=== PATIENT | male | born 1985 | race African-American/Black ===

== ENCOUNTER 2018-11-16 10:17 | Inpatient (IN) | payer SELFPAY ==
[2018-11-16] MEDS ORDERED: Aspirin Chewable 81 MG TAB ONE (11:27)
--- NOTE | 2018-11-16 11:45 | RAD ---
RADIOGRAPH CHEST 1 VIEW: DATE: 11/16/2018 HISTORY: 33-year-old male with chest pain and dyspnea. FINDINGS: The visualized lung sexton are clear. The cardiomediastinal silhouette and hilar shadows are normal. The lateral costophrenic angles are sharp. The osseous structures appear normal. There is no pneumothorax. IMPRESSION: Negative.
[2018-11-16 11:48] LABS: #Basophils 0.1 thou/uL (0.0-0.2); #Eosinphils 0.2 thou/uL (0.0-0.7); #Lymphocytes 1.7 thou/uL (1.20-3.40); #Monocytes 0.5 thou/uL (0.11-0.59); #Neutrophils 4.8 thou/uL (1.40-6.50); %Basophils 1.5 % (0.0-1.0); %Eosinophils 2.2 % (0.0-10.0); %Lymphocytes 23.6 % (21.0-51.0); %Monocytes 7.1 % (0.0-10.0); %Neutrophils 65.7 % (42.0-75.0); Hemoglobin 7.6 g/dL (14.0-18.0); Mean Corpuscular HGB CONC 28.8 g/dL (32.0-36.0); Mean Corpuscular Hemoglobin 19.8 pg (27.0-31.0); Mean Corpuscular Volume 68.9 fL (78.0-98.0); Platelet Count 305 thou/uL (130-400); RBC Distribution Width 16.9 % (11.5-14.5); Red Blood Cell (RBC) Count 3.81 mill/uL (4.70-6.10); White Blood Cell (WBC) Count 7.3 thou/uL (4.8-10.8)
[2018-11-16 12:05] LABS: ALT (SGPT) 26 U/L (8-55); AST (SGOT) 22 U/L (5-34); Albumin 3.9 g/dL (3.5-5.0); Alkaline Phosphatase 62 U/L (40-150); Anion Gap 8 mmol/L (10-20); BUN (Urea Nitrogen) 11 mg/dL (8.9-20.6); Bilirubin, Total 0.5 mg/dL (0.2-1.2); Calc. Creatinine Clearance 0 mL/min (70-130); Carbon Dioxide 27 mmol/L (22-29); Chloride 104 mmol/L (98-107); Estimated GFR-MDRD Greater than 90; Globulin 3.4 g/dL (2.4-3.5); Glucose 107 mg/dL (70-105); Potassium 4.2 mmol/L (3.5-5.1); Protein, Total 7.3 g/dL (6.0-8.3); Sodium 135 mmol/L (136-145)
[2018-11-16 12:20] LABS: Hypochromia MODERATE=16-30 cells (100X) (0-5/hpf); MDiff Complete? YES; Microcytosis MODERATE=15-30 cells (100X) (0-5/hpf); Ovalocytes SLIGHT = 2-5 cells (100X) (0-1/hpf); Polychromasia SLIGHT = 2-3 cells (100X) (0-2/hpf); Reflex for Review?? YES
[2018-11-16 14:05] LABS: Troponin I Less than 0.010 ng/mL (< 0.028)
[2018-11-16 15:05] LABS: Iron 18 ug/dL (65-175); Iron Binding Capacity, Total 509 mcg/dL (261-462)
[2018-11-16 15:46] LABS: Reticulocyte Count 2.3 % (0.5-1.5)
--- NOTE | 2018-11-16 16:12 | CON ---
DATE OF CONSULTATION: 11/16/2018 CHIEF COMPLAINT: Weakness, dizziness. HISTORY OF PRESENT ILLNESS: Mr. Patel is a 33-year-old man, who came to the emergency room this afternoon with his heart racing, weakness, and feeling like he needed to pass out. He was found to have severe anemia with a hemoglobin of 7.6 and MCV of 68. He reports that he has had red blood mixed with brown solid stool on and off over the last month. He has been having to strain at bowel movements, but stools have not been particularly hard themselves. He has had no nausea, vomiting, or abdominal pain with this. No chest pain or shortness of breath. He did have an episode, where he lost 80 pounds back in 2017 and felt weak then, but then those symptoms resolved and gained that weight back. His reports that he snores heavily and he stops breathing while he is sleeping. PAST MEDICAL HISTORY: Otherwise negative. PAST SURGICAL HISTORY: Negative. FAMILY HISTORY: He had an aunt with cervical cancer. SOCIAL HISTORY: Habits, he drinks 4-5 beers every other day. No drugs. He smokes cigarettes around once per month. ALLERGIES: PENICILLIN. MEDICATIONS: Prior to admission, none. He does not use aspirin or NSAIDs. REVIEW OF SYSTEMS: Negative x10 systems reviewed, except as stated in the history of present illness. PHYSICAL EXAMINATION: GENERAL: He is in no acute distress. Alert and oriented x3. He is obese. VITAL SIGNS: His weight is 355 pounds per his report. His pulse is regular. HEENT: His eyes have no scleral icterus. Oropharynx is clear without lesions. NECK: No cervical or supraclavicular lymphadenopathy. Oropharynx is clear without lesions. LUNGS: Clear to auscultation bilaterally. HEART: Regular rate and rhythm without murmur. ABDOMEN: Soft, nontender, and nondistended. Bowel sounds are present. EXTREMITIES: No lower extremity edema. NEUROLOGIC: Cranial nerves are grossly intact. IMPRESSION: 1. Severe symptomatic microcytic anemia. 2. Hematochezia on and off over the last month. 3. Morbid obesity with a weight of 355 pounds. 4. Symptoms suggestive of sleep apnea. RECOMMENDATIONS: EGD and colonoscopy tomorrow. Job ID: [id number]
[2018-11-16] MEDS ORDERED: GoLYTELY 4,000 ml Bottle PO SCH (18:00)
[2018-11-16] MEDS ORDERED: Ondansetron PF 4 MG/2 ML Vial IVP PRN (19:59)
[2018-11-16] MEDS ORDERED: Ondansetron ODT 4 MG TAB SL PRN (19:59)
[2018-11-16] MEDS ORDERED: Acetaminophen 325 MG TAB PO PRN (22:30)
[2018-11-16 23:26] VITALS: BMI 48.8
--- NOTE | 2018-11-17 00:16 | HP ---
CHIEF COMPLAINT: Shortness of breath. HISTORY OF PRESENT ILLNESS: The patient is a very pleasant 33-year-old male with past medical history significant for obesity and one month history of intermittent hematochezia, who presented to the hospital after suffering an episode of shortness of breath, some tingling in his chest and a feeling that he "could not breathe." The patient was actually getting lunch with his at [facility] when his symptoms began. EMS was called and his symptoms had resolved by the time they arrived. He was taken to the emergency department for further workup and treatment. Workup included EKG which showed normal sinus rhythm. Lab work, however, was significant for hemoglobin 7.1 and hematocrit 26.3. Given his history of intermittent bright red blood per rectum along with profound anemia, GI was consulted from the emergency department. Dr. Omer did come and see the patient and recommended EGD and colonoscopy tomorrow. REVIEW OF SYSTEMS: A 12-point review of systems performed. The patient's does report that he snores and she has witnessed some apneic episodes. The patient otherwise has negative review of systems. He has a job where he is quite active throughout the day and has had no limiting shortness of breath or fatigue. PAST MEDICAL HISTORY: Prehypertension diagnosed in 2010 and the patient was briefly on lisinopril, but he did not continue this medication long-term. PAST SURGICAL HISTORY: Negative. FAMILY HISTORY: No history of early colon cancers. No CAD or stroke. SOCIAL HISTORY: The patient is and has lived in [place] his whole life. He does drink about 2-3 beers per day. He does no illicit drugs. He says he smokes cigarettes about one time a month. He has 3 children, who are age 13, 11, and 4. He has his own [employer] business. ALLERGIES: PENICILLIN. MEDICATIONS: None. PHYSICAL EXAMINATION: VITAL SIGNS: Blood pressure 124/72, pulse is 72, O2 saturation is 100% on room air, respirations are 20, and temperature 98.1. GENERAL: The patient is an obese male, resting comfortably in no acute distress. HEENT: Head is atraumatic and normocephalic. Mucous membranes are moist. NECK: Supple. Trachea is midline. No JVD. CV: S1 and S2. Regular rate and rhythm. No appreciable murmurs, rubs, or gallops. LUNGS: Regular respiratory rate and pattern, overall clear to auscultation bilaterally. ABDOMEN: Positive bowel sounds. Soft, nontender. EXTREMITIES: No edema. SKIN: Warm and dry. NEUROLOGIC: The patient is alert and oriented x3. No focal deficits. LABORATORY DATA: White blood cell count 7.3, RBC 3.81, hemoglobin 7.6, hematocrit 26.3, platelet count is 305. Sodium 135, potassium 4.2, anion gap is 8, BUN is 11, creatinine 0.84. Troponin is negative. AST 22, ALT 26, alkaline phosphatase 62. ASSESSMENT: 1. Lower gastrointestinal bleed/hematochezia resulting in microcytic anemia with a hemoglobin of 7.6, suspect hemorrhoids 2. History of prehypertension. 3. Obesity. 4. Probable obstructive sleep apnea. PLAN: The patient will have EGD and colonoscopy tomorrow. Appreciate GI recommendations. Continue clear liquid diet and then n.p.o. after midnight. Further recommendations based on findings of scope tomorrow. The patient is hemodynamically stable and there is no need for transfusion at this time. Further recommendations based on hospital course. Job ID: [id number] [facility]
[2018-11-17 06:39] LABS: #Basophils 0.1 thou/uL (0.0-0.2); #Eosinphils 0.2 thou/uL (0.0-0.7); #Monocytes 0.7 thou/uL (0.11-0.59); #Neutrophils 6.7 thou/uL (1.40-6.50); %Basophils 1.1 % (0.0-1.0); %Eosinophils 2.4 % (0.0-10.0); %Lymphocytes 20.9 % (21.0-51.0); %Neutrophils 68.7 % (42.0-75.0); Anisocytosis SLIGHT = 6-15 cells (100X) (0-5/hpf); Hemoglobin 8.3 g/dL (14.0-18.0); Hypochromia MODERATE=16-30 cells (100X) (0-5/hpf); Large Platelets SLIGHT; MDiff Complete? YES; Mean Corpuscular HGB CONC 29.3 g/dL (32.0-36.0); Mean Corpuscular Hemoglobin 20.1 pg (27.0-31.0); Mean Corpuscular Volume 68.4 fL (78.0-98.0); Mean Platelet Volume 10.1 fL (7.4-10.4); Microcytosis SLIGHT = 6-15 cells (100X) (0-5/hpf); Platelet Count 351 thou/uL (130-400); Platelet Morphology Comment Appears Adequate; Red Blood Cell (RBC) Count 4.12 mill/uL (4.70-6.10); White Blood Cell (WBC) Count 9.7 thou/uL (4.8-10.8)
[2018-11-17] MEDS ORDERED: Famotidine/PF 20 mg/2ml Vial SLOW IVP SCH (09:00)
[2018-11-17] MEDS ORDERED: Fentanyl 100 MCG/2 ML VIAL ONE (10:55)
--- NOTE | 2018-11-17 11:59 | OP ---
DATE OF PROCEDURE: 11/17/2018 PROCEDURE PERFORMED: Esophagogastroduodenoscopy with biopsy and colonoscopy. PREOPERATIVE DIAGNOSIS: Hematochezia and iron deficiency anemia. DESCRIPTION OF PROCEDURE: Informed consent was obtained from the patient. He was sedated with total intravenous anesthesia. The upper endoscopy was performed under TIVA; however, due to the patient's size and obstructive sleep apnea, he was transitioned to general anesthesia to complete the colonoscopy. The esophagus had mild grade A erosive esophagitis and the distal esophagus. The esophagus was otherwise normal. The stomach was normal including retroflex views. The pylorus and first and second portions of the duodenum were normal. Biopsies were taken from the second portion of the duodenum to rule out celiac disease. Only two biopsies were obtained as the patient had desaturation with a sleep apnea with the upper endoscopy under TIVA. The patient was turned around after he was intubated and given general anesthesia. Rectal exam was performed and was normal. The colonoscope was advanced to the terminal ileum without difficulty. The mucosa of the terminal ileum was normal. The ileocecal valve and appendiceal orifice were clearly identified. The colonic mucosa was normal throughout. The preparation quality was excellent. Retroflexed views in the rectum revealed one column internal/external hemorrhoid with superficial red spots over this hemorrhoid above and below the dentate line. IMPRESSION: 1. Mild grade A erosive esophagitis. 2. Otherwise normal esophagogastroduodenoscopy. Duodenal biopsies taken to rule out celiac disease. 3. Normal colonoscopy to the terminal ileum. 4. Internal/external hemorrhoid with red spots over the hemorrhoid above and below the dentate line. It appears this is likely the most likely bleeding source given that he has had hematochezia along with iron deficiency anemia. 5. Sleep apnea. RECOMMENDATIONS: 1. Await histopathology. 2. Iron supplementation. 3. Follow up with Pulmonology as an outpatient for treatment of his sleep apnea. 4. Surgical evaluation of his hemorrhoids. Job ID: [id number]
[2018-11-17 13:33] VITALS: TEMP 97.5
[2018-11-17 13:36] VITALS: BP 142/82
--- NOTE | 2018-11-17 14:35 | CON ---
DATE OF CONSULTATION: 11/17/2018 HISTORY OF PRESENT ILLNESS: This is a 33-year-old male with a history of no perianal pain, however, blood with bowel movements filling the toilet, seen by Dr. Omer, who performed colonoscopy, which shows no obvious other source. He does see stigmata of recent bleeding and hemorrhoids. The patient has had no more bleeding after his colon prep. He notes chronic constipation. Never had any surgery on his backside before. PAST MEDICAL HISTORY: Includes hypertension. PAST SURGICAL HISTORY: Negative. MEDICATIONS: Medicines taken daily, none. ALLERGIES: PENICILLIN. SOCIAL HISTORY: . Lives in [place]. 2 to 3 beers per day. No other drugs. No daily smoking. REVIEW OF SYSTEMS: Otherwise negative unless described above. PHYSICAL EXAMINATION: VITAL SIGNS: Blood pressure is 142/82, pulse is 83, respirations 16. CHEST: Clear. HEART: Regular rate and rhythm. ABDOMEN: Soft, nontender. : Examination of his perirectal area reveals no obvious anal canal mass. Sphincter tone normal. There are internal hemorrhoids seen. There is no blood in the vault. ASSESSMENT: Bleeding from internal-external hemorrhoid causing anemia. PLAN: We discussed options for this hemorrhoid. It is likely going to need to be removed. He would like not to have to wait and do it during this hospitalization, so he is going to follow up with me in the office next week. He has my cell phone number. If the bleeding returns, he is going to text me. Otherwise, he is going to do MiraLAX daily. It is okay from my standpoint to discharge. Job ID: [id number]
== END 2018-11-17 15:58 | disposition home or self-care (01) | DRG 394 ==
LOC: ERS 10:17 → T4-B 16:09
PROVIDERS: ADMIT Internal Medicine; ATTEND Internal Medicine
PROC: 0DB98ZX Excision of Duodenum, Via Natural or Artificial Opening Endoscopic, Diagnostic (ICD-10-PCS; principal; 2018-11-17)
PROC: 0DJD8ZZ Inspection of Lower Intestinal Tract, Via Natural or Artificial Opening Endoscopic (ICD-10-PCS; 2018-11-17)
DX: K64.4 Residual hemorrhoidal skin tags (principal); Z68.42 Body mass index [BMI] 45.0-49.9, adult; K64.8 Other hemorrhoids; D50.9 Iron deficiency anemia, unspecified; F41.9 Anxiety disorder, unspecified; I10 Essential (primary) hypertension; F17.210 Nicotine dependence, cigarettes, uncomplicated; E66.01 Morbid (severe) obesity due to excess calories; G47.33 Obstructive sleep apnea (adult) (pediatric); K20.8 Other esophagitis; K59.09 Other constipation; Z88.0 Allergy status to penicillin
CPT/HCPCS: 36415; 71045; 80053; 82728; 83540; 83550; 84484; 85025; 85046; 85060; 86850; 86900; 86901; 88305; 93005; J3010; S0028